=== PATIENT | female | born 1960 | race Caucasian/White ===

== ENCOUNTER → 2021-01-25 | Outpatient (CLI) | payer OTHER ==
[~2021-01-25] MED LIST: ALBUTEROL INH INH; BUSPIRONE HCL7.5 MG PO; COZAAR100 MG PO; DICYCLOMINE HCL20 MG PO; DULERA 100 MCG8.8 GM INH; ESCITALOPRAM OX10 MG PO; HYDROCHLOROTHIA25 MG PO; KEPPRA1000 MG PO; LEXAPRO10 MG PO; LOSARTAN-HCTZ1 EAC1 PO; PERCOCET 5-3251 EACH PO; REQUIP3 MG PO; SINGULAIR10 MG PO; SPIRIVA18 MCG INH; XARELTO20 MG PO
== END ==
LOC: MAMO 12:31
DX: R92.8 Other abnormal and inconclusive findings on diagnostic imaging of breast (principal)
CPT/HCPCS: 76641-LT; 76641-RT; 77066; G0279

== ENCOUNTER → 2021-07-29 | Outpatient (CLI) | payer OTHER | LOC: RAD 13:26 | DX: M25.562 Pain in left knee (principal); M17.12 Unilateral primary osteoarthritis, left knee | CPT/HCPCS: 73564 ==

== ENCOUNTER → 2022-03-06 | Outpatient (CLI) | payer OTHER ==
[2022-03-06 09:42] LABS: HEMOGLOBIN 14.8 gm/dl (12.3-15.3); RED BLOOD COUNT 4.57 M/UL (4.00-5.10); WHITE BLOOD COUNT 11.1 K/UL (4.5-11.0)
[2022-03-06 10:01] LABS: BUN/CREATININE RATIO 28 (0-10)
[2022-03-07 11:12] LABS: CREATININE, URINE 34.8 mg/dL (Not Estab.)
== END ==
LOC: MAMO 09:10
PROVIDERS: Nurse Practitioner
DX: Z12.31 Encounter for screening mammogram for malignant neoplasm of breast (principal); I10 Essential (primary) hypertension; N62 Hypertrophy of breast
CPT/HCPCS: 36415; 77063; 77067; 80053; 80061; 82043; 82570; 84443; 85025

== ENCOUNTER → 2022-03-17 | Outpatient (CLI) | payer OTHER | LOC: MAMO 12:41 | DX: R92.8 Other abnormal and inconclusive findings on diagnostic imaging of breast (principal); N64.89 Other specified disorders of breast | CPT/HCPCS: 76641-RT; 77065; G0279 ==

== ENCOUNTER → 2022-06-09 | Outpatient (CLI) | payer OTHER ==
[~2022-06-09] MED LIST changes: +BUSPAR 10MG10 MG PO; +ELIQUIS 2.5 MG2.5 MG PO; +KEPPRA500 MG PO; -LEXAPRO10 MG PO; +LEXAPRO20 MG PO; +PROAIR HFA8.5 GM INH; +SPIRIVA HANDIH18 MCG INH; +VITAMIN B12-FO1 EACH PO
[2022-06-09 10:29] LABS: HEMOGLOBIN 13.2 gm/dl (12.3-15.3); RED BLOOD COUNT 4.18 M/UL (4.00-5.10); WHITE BLOOD COUNT 9.7 K/UL (4.5-11.0)
[2022-06-09 10:55] LABS: BUN/CREATININE RATIO 25 (0-10)
== END ==
LOC: OPSV2 09:00 → EDSTATUS 09:00 → OPSV2 09:22
PROVIDERS: Orthopaedic Surgery
DX: Z01.818 Encounter for other preprocedural examination (principal); M17.12 Unilateral primary osteoarthritis, left knee; R94.31 Abnormal electrocardiogram [ECG] [EKG]; R00.1 Bradycardia, unspecified; I25.10 Atherosclerotic heart disease of native coronary artery without angina pectoris; Z79.01 Long term (current) use of anticoagulants
CPT/HCPCS: 71046; 80048; 81001; 85027; 93005

== ENCOUNTER → 2022-06-22 | Outpatient (CLI) | payer OTHER ==
[~2022-06-22] MED LIST changes: +CELEBREX200 MG PO; +GABAPENTIN300 MG PO; +KEPPRA XR500 MG PO; -KEPPRA500 MG PO; +LOVENOX SY40 MG/0.4 SQ; +ONDANSETRON HCL4 MG PO; +ROXICODONE5 MG PO; -SPIRIVA HANDIH18 MCG INH
[2022-06-22 13:41] LABS: BUN/CREATININE RATIO 24 (0-10)
== END ==
LOC: LAB 12:36
PROVIDERS: Orthopaedic Surgery
DX: Z01.812 Encounter for preprocedural laboratory examination (principal); M17.12 Unilateral primary osteoarthritis, left knee
CPT/HCPCS: 36415; 80048; 86850; 86900; 86901